=== PATIENT | female | born 1955 | race Caucasian/White ===

== ENCOUNTER 2017-12-21 13:02 | Outpatient (CLI) | payer OTHER | END 2017-12-21 13:03 | disposition home or self-care (01) | LOC: BICMAMMO 13:02 | PROVIDERS: ATTEND Family Medicine | DX: Z12.31 Encounter for screening mammogram for malignant neoplasm of breast (principal); R92.1 Mammographic calcification found on diagnostic imaging of breast | CPT/HCPCS: 77067 ==

== ENCOUNTER 2019-07-12 12:11 | Outpatient (CLI) | payer OTHER ==
--- NOTE | 2019-07-12 14:32 | MMO ---
Bilateral MAMMO Bilat Screen [facility]. CLINICAL HISTORY: Patient is 63 years old and is seen for screening. The patient has no family history of breast cancer. The patient has no personal history of cancer. VIEWS: The views performed were: bilateral craniocaudal with tomosynthesis and bilateral mediolateral oblique with tomosynthesis. FILMS COMPARED: The present examination has been compared to prior imaging studies performed at [facility] on 10/23/2013 and 12/21/2017, and at [facility] on 03/24/2016. This study has been interpreted with the assistance of computer-aided detection. MAMMOGRAM FINDINGS: The breasts are almost entirely fat. There are benign appearing calcifications seen in both breasts. There are no suspicious masses, suspicious calcifications, or new areas of architectural distortion. IMPRESSION: THERE IS NO MAMMOGRAPHIC EVIDENCE OF MALIGNANCY. A ROUTINE FOLLOW-UP MAMMOGRAM IN 1 YEAR IS RECOMMENDED. THE RESULTS OF THIS EXAM WERE SENT TO THE PATIENT. ACR BI-RADS Category 2 - Benign finding MAMMOGRAPHY NOTE: 1. A negative mammogram report should not delay a biopsy if a dominant of clinically suspicious mass is present. 2. Approximately 10% to 15% of breast cancers are not detected by mammography. 3. Adenosis and dense breasts may obscure an underlying neoplasm. Reported by: URSZULA ABREU MD Electonically Signed: [id number]
== END 2019-07-12 12:12 | disposition home or self-care (01) ==
LOC: BICMAMMO 12:11
PROVIDERS: ATTEND Family Medicine
DX: Z12.31 Encounter for screening mammogram for malignant neoplasm of breast (principal)
CPT/HCPCS: 77063; 77067

== ENCOUNTER 2020-08-11 13:47 | Outpatient (CLI) | payer OTHER ==
--- NOTE | 2020-08-11 15:55 | MMO ---
Bilateral MAMMO Bilat Screen [facility]. CLINICAL HISTORY: Patient is 64 years old and is seen for screening. The patient has no family history of breast cancer. The patient has no personal history of cancer. VIEWS: The views performed were: bilateral craniocaudal and bilateral mediolateral oblique. FILMS COMPARED: The present examination has been compared to prior imaging studies performed at [facility] on 10/23/2013, 12/21/2017 and 07/12/2019, and at [facility] on 03/24/2016. This study has been interpreted with the assistance of computer-aided detection. MAMMOGRAM FINDINGS: The breasts are almost entirely fat. There are no suspicious masses, suspicious calcifications, or new areas of architectural distortion. IMPRESSION: THERE IS NO MAMMOGRAPHIC EVIDENCE OF MALIGNANCY. A ROUTINE FOLLOW-UP MAMMOGRAM IN 1 YEAR IS RECOMMENDED. ACR BI-RADS Category 1 - Negative MAMMOGRAPHY NOTE: 1. A negative mammogram report should not delay a biopsy if a dominant of clinically suspicious mass is present. 2. Approximately 10% to 15% of breast cancers are not detected by mammography. 3. Adenosis and dense breasts may obscure an underlying neoplasm. Reported by: FACUNDO GONZALEZ MD Electonically Signed: [id number]
== END 2020-08-11 13:48 | disposition home or self-care (01) ==
LOC: BICMAMMO 13:47
PROVIDERS: ATTEND Family Medicine
DX: Z12.31 Encounter for screening mammogram for malignant neoplasm of breast (principal)
CPT/HCPCS: 77067

== ENCOUNTER 2021-09-16 11:03 | Outpatient (CLI) | payer MEDICARE, OTHER | END 2021-09-16 11:04 | disposition home or self-care (01) | LOC: BICMAMMO 11:03 | PROVIDERS: ATTEND Family Medicine | DX: Z12.31 Encounter for screening mammogram for malignant neoplasm of breast (principal) | CPT/HCPCS: 77063; 77067 ==

== ENCOUNTER 2022-11-23 11:10 | Outpatient (CLI) | payer MEDICARE, OTHER | END 2022-11-23 11:11 | disposition home or self-care (01) | LOC: BICMAMMO 11:10 | PROVIDERS: ATTEND Family Medicine | DX: Z12.31 Encounter for screening mammogram for malignant neoplasm of breast (principal) | CPT/HCPCS: 77063; 77067 ==

== ENCOUNTER 2023-07-13 08:21 | Inpatient (IN) | payer MEDICARE, MEDICAID ==
[2023-07-13] MEDS ORDERED: Furosemide 40 MG/4 ML VIAL ONE (08:30)
[2023-07-13] MEDS ORDERED: Nitroglycerin 2% Ointment 1 INCH/1 GM Packet ONE (08:30)
[2023-07-13 08:34] LABS: Actual Bicarbonate (HCO3a) 24.1 mEq/L (22-28); Analyzer IN Cardio ER; Base Excess (BEa) -1.7 mEq/L (-2.0 to +3.0); CO2 Tension 44.8 mmHg (35.0-45.0); Calcium, Ionized (arterial) 1.17 mmol/L (1.12-1.30); Carboxyhemoglobin (COHb) 0.6 gm% (0.0-3.0); Hematocrit-ABG 42 % (36.0-47.0); Hemoglobin (Hb) 14.3 g/dL (12.0-16.0); O2 Tension (PaO2), arterial 88.9 mmHg (> 80.0); Potassium - ABG Lab 3.89 mmol/L (3.70-5.30); pH, Arterial 7.349 (7.35-7.45)
[2023-07-13 08:36] LABS: Puncture Site RRA
[2023-07-13 09:07] LABS: #Basophils 0.1 thou/uL (0.0-0.2); #Eosinphils 0.1 thou/uL (0.0-0.7); #Monocytes 0.4 thou/uL (0.11-0.59); #Neutrophils 10.4 thou/uL (1.40-6.50); %Basophils 0.6 % (0.0-1.0); %Monocytes 3.5 % (0.0-10.0); %Neutrophils 85.6 % (42.0-75.0); Hematocrit 41.5 % (36.0-47.0); Hemoglobin 13.2 g/dL (12.0-16.0); Mean Corpuscular HGB CONC 31.8 g/dL (32.0-36.0); Mean Corpuscular Hemoglobin 27.6 pg (27.0-31.0); Mean Corpuscular Volume 86.8 fl (78.0-98.0); Mean Platelet Volume 10.2 fL (7.4-10.4); Platelet Count 341 10x3/uL (130-400); RBC Distribution Width 15.3 % (11.5-14.5); Red Blood Cell (RBC) Count 4.78 mill/uL (4.20-5.40); White Blood Cell (WBC) Count 12.2 10x3/uL (4.8-10.8)
[2023-07-13 09:30] LABS: ALT (SGPT) 58 U/L (8-55); AST (SGOT) 47 U/L (5-34); Albumin 4.3 g/dL (3.4-4.8); Alkaline Phosphatase 109 U/L (40-110); Anion Gap 12 mmol/L (10-20); BUN (Urea Nitrogen) 15 mg/dL (9.8-20.1); Bilirubin, Total 0.5 mg/dL (0.2-1.2); Calc. Creatinine Clearance 0 mL/min (70-130); Carbon Dioxide 25 mmol/L (23-31); Chloride 108 mmol/L (98-107); Estimated GFR 82; Globulin 2.7 g/dL (2.4-3.5); Glucose 141 mg/dL (80-115); Potassium 3.8 mmol/L (3.5-5.1); Sodium 141 mmol/L (136-145)
[2023-07-13 09:33] LABS: Troponin I 0.027 ng/mL (< 0.028)
[2023-07-13 11:49] LABS: Troponin I 0.074 ng/mL (< 0.028)
[2023-07-13] MEDS ORDERED: Acetaminophen 325 MG TAB PO PRN (12:06)
[2023-07-13] MEDS ORDERED: Calcium Carbonate 500 MG ChewTAB PO PRN (12:06)
[2023-07-13] MEDS ORDERED: Ondansetron PF 4 MG/2 ML Vial IVP PRN (12:06)
[2023-07-13] MEDS ORDERED: Ondansetron ODT 4 MG TAB PO PRN (12:06)
[2023-07-13] MEDS ORDERED: dilTIAZem 30 MG TAB PO PRN (12:10)
[2023-07-13] MEDS ORDERED: Communication Order-Pharmacy FS SCH (12:11)
[2023-07-13 13:08] LABS: Magnesium 1.9 mg/dL (1.6-2.6)
[2023-07-13] MEDS ORDERED: Ipratropium/Albuterol 3 ML NEB NEB SCH (14:30)
[2023-07-13] MEDS: Ipratropium Bromide 2.5 ml Neb NEB SCH ×4 (14:30→22:37)
[2023-07-13 15:21] VITALS: BMI 53.9
[2023-07-13] MEDS: Furosemide 40 MG/4 ML VIAL SLOW IVP SCH (15:26)
[2023-07-13] MEDS: Nitroglycerin 2% Ointment 1 INCH/1 GM Packet TOP SCH ×2 (15:27→23:57)
[2023-07-13 15:33] LABS: Troponin I 0.102 ng/mL (< 0.028)
[2023-07-13] MEDS ORDERED: Magnesium 2 GM/50 ML(in water) 2 GM in Premix 1 BAG IVPB SCH (16:00)
[2023-07-13] MEDS: methylPREDNISolone Sod Succ 40 MG VIAL IVP SCH ×2 (16:36→23:57)
[2023-07-13] MEDS: dilTIAZem 125 MG in Sodium Chloride 0.9% 100 ML IVPB SCH (16:50)
[2023-07-13] MEDS ORDERED: predniSONE 20 MG TAB PO SCH (17:00)
[2023-07-13] MEDS ORDERED: dilTIAZem 30 MG TAB PO SCH (17:00)
[2023-07-13] MEDS: Budesonide 0.5 MG/2 ML NEB NEB SCH (18:29)
[2023-07-13] MEDS: Famotidine 20 MG TAB PO SCH (21:29)
[2023-07-14] MEDS: dilTIAZem 125 MG in Sodium Chloride 0.9% 100 ML IVPB SCH ×3 (00:54→17:06)
[2023-07-14] MEDS: Ipratropium Bromide 2.5 ml Neb NEB SCH ×6 (02:29→21:48)
[2023-07-14 05:33] LABS: #Monocytes 0.6 thou/uL (0.11-0.59); #Neutrophils 10.5 thou/uL (1.40-6.50); %Basophils 0.1 % (0.0-1.0); %Monocytes 4.5 % (0.0-10.0); %Neutrophils 84.2 % (42.0-75.0); Hematocrit 40.1 % (36.0-47.0); Hemoglobin 12.6 g/dL (12.0-16.0); Mean Corpuscular HGB CONC 31.4 g/dL (32.0-36.0); Mean Corpuscular Hemoglobin 27.5 pg (27.0-31.0); Mean Corpuscular Volume 87.4 fl (78.0-98.0); Mean Platelet Volume 10.1 fL (7.4-10.4); Platelet Count 350 10x3/uL (130-400); RBC Distribution Width 15.5 % (11.5-14.5); Red Blood Cell (RBC) Count 4.59 mill/uL (4.20-5.40); White Blood Cell (WBC) Count 12.5 10x3/uL (4.8-10.8)
[2023-07-14 05:58] LABS: ALT (SGPT) 49 U/L (8-55); AST (SGOT) 29 U/L (5-34); Albumin 4.2 g/dL (3.4-4.8); Alkaline Phosphatase 90 U/L (40-110); Anion Gap 13 mmol/L (10-20); BUN (Urea Nitrogen) 20 mg/dL (9.8-20.1); Bilirubin, Total 0.3 mg/dL (0.2-1.2); Calc. Creatinine Clearance 151 mL/min (70-130); Calcium 9.1 mg/dL (7.8-10.44); Carbon Dioxide 28 mmol/L (23-31); Chloride 100 mmol/L (98-107); Estimated GFR 89; Globulin 2.5 g/dL (2.4-3.5); Glucose 125 mg/dL (80-115); Magnesium 2.3 mg/dL (1.6-2.6); Potassium 3.7 mmol/L (3.5-5.1); Protein, Total 6.7 g/dL (5.8-8.1); Sodium 137 mmol/L (136-145)
[2023-07-14 06:03] LABS: Troponin I 0.047 ng/mL (< 0.028)
[2023-07-14] MEDS: Furosemide 40 MG/4 ML VIAL SLOW IVP SCH ×2 (06:35→15:53)
[2023-07-14] MEDS: Budesonide 0.5 MG/2 ML NEB NEB SCH ×2 (06:39→18:51)
[2023-07-14] MEDS: methylPREDNISolone Sod Succ 40 MG VIAL IVP SCH ×3 (08:27→23:56)
[2023-07-14] MEDS: Nitroglycerin 2% Ointment 1 INCH/1 GM Packet TOP SCH ×2 (08:27→16:20)
[2023-07-14] MEDS: Famotidine 20 MG TAB PO SCH ×2 (08:28→20:22)
[2023-07-14] MEDS: Aspirin 81 mg Enteric Coated Tablet PO SCH (08:29)
[2023-07-15] MEDS: dilTIAZem 125 MG in Sodium Chloride 0.9% 100 ML IVPB SCH (01:12)
[2023-07-15] MEDS: Ipratropium Bromide 2.5 ml Neb NEB SCH ×6 (01:45→22:49)
[2023-07-15] MEDS: Budesonide 0.5 MG/2 ML NEB NEB SCH ×2 (05:47→18:24)
[2023-07-15] MEDS: Furosemide 40 MG/4 ML VIAL SLOW IVP SCH ×2 (06:13→15:30)
[2023-07-15] MEDS ORDERED: dilTIAZem 125 MG in Sodium Chloride 0.9% 100 ML IVPB SCH (08:30)
[2023-07-15] MEDS ORDERED: Digoxin 0.5 MG/2 ML AMP SLOW IVP SCH (08:30)
[2023-07-15] MEDS: methylPREDNISolone Sod Succ 40 MG VIAL IVP SCH (10:00)
[2023-07-15] MEDS: Aspirin 81 mg Enteric Coated Tablet PO SCH (10:01)
[2023-07-15] MEDS: Famotidine 20 MG TAB PO SCH ×2 (10:02→20:28)
[2023-07-15] MEDS: Melatonin 3 MG TAB PO SCH (20:28)
[2023-07-16] MEDS: Ipratropium Bromide 2.5 ml Neb NEB SCH ×6 (02:46→22:24)
[2023-07-16 04:05] LABS: Hematocrit 42.4 % (36.0-47.0); Hemoglobin 13.3 g/dL (12.0-16.0); Platelet Count 356 10x3/uL (130-400)
[2023-07-16] MEDS: Furosemide 40 MG/4 ML VIAL SLOW IVP SCH ×2 (06:11→12:37)
[2023-07-16] MEDS: Budesonide 0.5 MG/2 ML NEB NEB SCH ×2 (06:40→18:49)
[2023-07-16] MEDS: Citalopram 20 MG TAB PO SCH (09:25)
[2023-07-16] MEDS: Aspirin 81 mg Enteric Coated Tablet PO SCH (09:25)
[2023-07-16] MEDS: Atorvastatin Calcium 10 MG TAB PO SCH (09:25)
[2023-07-16] MEDS: Famotidine 20 MG TAB PO SCH ×2 (09:25→21:18)
[2023-07-16] MEDS ORDERED: Potassium Chloride 20 MEQ TAB PO SCH (12:00)
[2023-07-16] MEDS: Melatonin 3 MG TAB PO SCH (21:18)
[2023-07-17] MEDS: Ipratropium Bromide 2.5 ml Neb NEB SCH ×6 (02:26→22:44)
[2023-07-17] MEDS: Furosemide 40 MG/4 ML VIAL SLOW IVP SCH (05:29)
[2023-07-17 06:27] LABS: Digoxin 0.37 ng/mL (0.8-2.0)
[2023-07-17 06:29] LABS: Anion Gap 13 mmol/L (10-20); BUN (Urea Nitrogen) 26 mg/dL (9.8-20.1); Calc. Creatinine Clearance 154 mL/min (70-130); Calcium 8.9 mg/dL (7.8-10.44); Carbon Dioxide 35 mmol/L (23-31); Chloride 93 mmol/L (98-107); Estimated GFR 95; Glucose 82 mg/dL (80-115); Magnesium 2.3 mg/dL (1.6-2.6); Potassium 3.6 mmol/L (3.5-5.1); Sodium 137 mmol/L (136-145)
[2023-07-17] MEDS: Budesonide 0.5 MG/2 ML NEB NEB SCH ×2 (07:39→18:19)
[2023-07-17] MEDS: Citalopram 20 MG TAB PO SCH (10:09)
[2023-07-17] MEDS: Aspirin 81 mg Enteric Coated Tablet PO SCH (10:09)
[2023-07-17] MEDS: Famotidine 20 MG TAB PO SCH ×2 (10:10→21:07)
[2023-07-17] MEDS: Atorvastatin Calcium 10 MG TAB PO SCH (10:10)
[2023-07-17] MEDS ORDERED: Nystatin Powder 15 GM BOT TOP PRN (13:54)
[2023-07-17] MEDS ORDERED: dilTIAZem CD 180 MG CAP PO SCH (18:00)
[2023-07-17] MEDS: Melatonin 3 MG TAB PO SCH (21:07)
[2023-07-17] MEDS: Apixaban 5 MG TAB PO SCH (21:07)
[2023-07-18] MEDS: Ipratropium Bromide 2.5 ml Neb NEB SCH ×5 (02:09→19:27)
[2023-07-18] MEDS ORDERED: Furosemide 40 MG TAB PO SCH (07:30)
[2023-07-18] MEDS: Famotidine 20 MG TAB PO SCH (08:04)
[2023-07-18] MEDS: Atorvastatin Calcium 10 MG TAB PO SCH (08:04)
[2023-07-18] MEDS: Aspirin 81 mg Enteric Coated Tablet PO SCH (08:04)
[2023-07-18] MEDS: Citalopram 20 MG TAB PO SCH (08:04)
[2023-07-18] MEDS: Apixaban 5 MG TAB PO SCH (08:04)
[2023-07-18] MEDS: Budesonide 0.5 MG/2 ML NEB NEB SCH ×2 (08:11→19:26)
[2023-07-18] MEDS ORDERED: dilTIAZem CD 180 MG CAP PO SCH (09:00)
[2023-07-18 15:31] VITALS: BP 115/67; TEMP 97.6
[2023-07-18] MEDS ORDERED: Metoprolol Tartrate 25 MG TAB PO SCH (21:00)
[2023-07-18] MEDS ORDERED: dilTIAZem 30 MG TAB PO SCH (21:00)
== END 2023-07-18 19:41 | disposition home health service (06) | DRG 291 ==
LOC: ERS 08:21 → IMCU/EMU 10:47 → 2NO 07-16 20:27
PROVIDERS: ADMIT Internal Medicine; ATTEND Family Medicine
PROC: 4A033R1 Measurement of Arterial Saturation, Peripheral, Percutaneous Approach (ICD-10-PCS; principal; 2023-07-13)
DX: I11.0 Hypertensive heart disease with heart failure (principal); I50.33 Acute on chronic diastolic (congestive) heart failure; J96.01 Acute respiratory failure with hypoxia; I24.89 Other forms of acute ischemic heart disease; Z68.43 Body mass index [BMI] 50.0-59.9, adult; J45.909 Unspecified asthma, uncomplicated; F41.9 Anxiety disorder, unspecified; M54.50 Low back pain, unspecified; G89.29 Other chronic pain; I48.91 Unspecified atrial fibrillation; E66.01 Morbid (severe) obesity due to excess calories; F32.A Depression, unspecified
CPT/HCPCS: 36415; 36600; 71045; 80048; 80053; 80162; 82805; 83735; 83880; 84443; 84484; 85014; 85018; 85025; 85049; 93005; 93010; 93306; 93798; 94660; 96372; 96374; 97139; J1160; J1650; J1940; J2920; J3475; J3490; J7626

== ENCOUNTER 2023-10-20 09:06 | Day surgery (SDC) | payer MEDICARE, MEDICAID ==
[2023-09-28 09:41] VITALS: BMI 46.8
[2023-10-20 10:23] LABS: #Basophils 0.1 thou/uL (0.0-0.2); #Eosinphils 0.1 thou/uL (0.0-0.7); #Monocytes 0.7 thou/uL (0.11-0.59); #Neutrophils 6.1 thou/uL (1.40-6.50); %Basophils 0.9 % (0.0-1.0); %Eosinophils 1.4 % (0.0-10.0); %Lymphocytes 19.8 % (21.0-51.0); %Monocytes 7.8 % (0.0-10.0); Hematocrit 39.3 % (36.0-47.0); Hemoglobin 12.3 g/dL (12.0-16.0); Mean Corpuscular HGB CONC 31.3 g/dL (32.0-36.0); Mean Corpuscular Hemoglobin 27.4 pg (27.0-31.0); Mean Corpuscular Volume 87.5 fl (78.0-98.0); Mean Platelet Volume 10.1 fL (7.4-10.4); Platelet Count 347 10x3/uL (130-400); RBC Distribution Width 14.9 % (11.5-14.5); Red Blood Cell (RBC) Count 4.49 mill/uL (4.20-5.40); White Blood Cell (WBC) Count 8.8 10x3/uL (4.8-10.8)
[2023-10-20 10:43] LABS: Anion Gap 12 mmol/L (10-20); BUN (Urea Nitrogen) 9 mg/dL (9.8-20.1); Calc. Creatinine Clearance 138 mL/min (70-130); Carbon Dioxide 28 mmol/L (23-31); Chloride 103 mmol/L (98-107); Estimated GFR 95; Glucose 97 mg/dL (80-115); INR-International Normal Ratio 1.3; PTT 36.4 sec (22.9-36.1); Potassium 3.7 mmol/L (3.5-5.1); Prothrombin Time 16.1 sec (12.0-14.7); Sodium 139 mmol/L (136-145)
[2023-10-20] MEDS ORDERED: PROPOFOL 20 ML ONE (12:06)
== END 2023-10-20 15:38 | disposition home or self-care (01) ==
LOC: SDC 09:06
PROVIDERS: ATTEND Internal Medicine Cardiovascular Disease
PROC: 5A2204Z Restoration of Cardiac Rhythm, Single (ICD-10-PCS; principal; 2023-10-20)
DX: I48.19 Other persistent atrial fibrillation (principal); I08.3 Combined rheumatic disorders of mitral, aortic and tricuspid valves; I10 Essential (primary) hypertension; J45.909 Unspecified asthma, uncomplicated; F32.A Depression, unspecified; Z91.048 Other nonmedicinal substance allergy status; Z79.01 Long term (current) use of anticoagulants; Z79.899 Other long term (current) drug therapy
CPT/HCPCS: 80048; 85025; 85610; 85730; 92960; 93005; 93010; 93312; J2704

== ENCOUNTER 2023-11-08 16:00 | Outpatient (CLI) | payer MEDICARE, MEDICAID | END 2023-11-08 16:01 | disposition home or self-care (01) | LOC: SLEEPLAB 16:00 | PROVIDERS: ATTEND Internal Medicine Critical Care Medicine | DX: G47.33 Obstructive sleep apnea (adult) (pediatric) (principal); E66.9 Obesity, unspecified; R06.83 Snoring; I11.0 Hypertensive heart disease with heart failure; I50.9 Heart failure, unspecified; Z68.42 Body mass index [BMI] 45.0-49.9, adult; R09.02 Hypoxemia | CPT/HCPCS: 95810 ==

== ENCOUNTER 2024-01-14 16:00 | Outpatient (CLI) | payer MEDICARE, OTHER | END 2024-01-14 16:01 | disposition home or self-care (01) | LOC: SLEEPLAB 16:00 | PROVIDERS: ATTEND Internal Medicine Critical Care Medicine | DX: G47.33 Obstructive sleep apnea (adult) (pediatric) (principal); I11.0 Hypertensive heart disease with heart failure; I50.9 Heart failure, unspecified; E66.9 Obesity, unspecified; R06.83 Snoring; R53.83 Other fatigue; G47.61 Periodic limb movement disorder; Z68.42 Body mass index [BMI] 45.0-49.9, adult | CPT/HCPCS: 95811 ==

== ENCOUNTER 2025-04-18 08:25 | Day surgery (SDC) | payer MEDICARE, MEDICAID ==
[2025-04-14 11:04] VITALS: BMI 51.3
[2025-04-18] MEDS ORDERED: Ketamine In 0.9 % NaCl 50 MG/5 ML SYRINGE ONE (09:45)
[2025-04-18] MEDS ORDERED: Etomidate 40 MG (20 mL) VIAL ONE (09:46)
[2025-04-18] MEDS ORDERED: Albuterol HFA (OR) 200 PUFF INH ONE (09:46)
[2025-04-18] MEDS ORDERED: PROPOFOL 200 MG/20 ML VIAL ONE (12:12)
== END 2025-04-18 13:40 | disposition home or self-care (01) ==
LOC: SDC 08:25
PROVIDERS: ATTEND Internal Medicine Cardiovascular Disease
PROC: 5A2204Z Restoration of Cardiac Rhythm, Single (ICD-10-PCS; principal; 2025-04-18)
PROC: B24BZZ4 Ultrasonography of Heart with Aorta, Transesophageal (ICD-10-PCS; 2025-04-18)
DX: I48.19 Other persistent atrial fibrillation (principal); I10 Essential (primary) hypertension; G47.33 Obstructive sleep apnea (adult) (pediatric); J45.909 Unspecified asthma, uncomplicated; Z91.02 Food additives allergy status; Z91.048 Other nonmedicinal substance allergy status; Z79.01 Long term (current) use of anticoagulants; Z79.51 Long term (current) use of inhaled steroids; Z79.899 Other long term (current) drug therapy
CPT/HCPCS: 82962; 92960; 93005; 93312; J2250; J2704; J3490; 36416; 93010; J7620